=== PATIENT | female | born 1995 | race Caucasian/White ===

== ENCOUNTER 2017-09-23 10:05 | Emergency (ER) | payer OTHER ==
[~2017-09-23] VITALS: Ht 167.6 cm; Wt 64.0 kg
[2017-09-23 10:06] VITALS: BP 110/60; PULSE 78; RESP 16; TEMP 98.5; O2SAT 100
[2017-09-23] MEDS ORDERED: BENZ100 PO (10:31)
[2017-09-23] MEDS ORDERED: AZIT250T3 PO (10:31)
--- NOTE | 2017-09-23 10:34 | PD ---
HPI Chief Complaint: Cold / Flu Symptoms Time Seen by Provider: 10:30 Travel History International Travel<30 days: No Contact w/Intl Traveler<30days: No Traveled to known affect area: No History of Present Illness HPI This is a 22-year-old female with no significant past medical history presents for evaluation. For 3 weeks she has had a cough with green sputum production, sore throat and congestion. Symptoms have worsened over the past few days which prompted evaluation. She denies fevers, chills, recent travel, abdominal pain, nausea or vomiting, shortness of breath. No sick contacts. No other complaints at this time. [facility] Past Medical History Medical History: Denies Significant Hx ?: Not LMP: 09/23/17 Past Surgical History Other Surgery: Yes (RHINOPLASTY) Social History Alcohol Use: No Tobacco Use: No Substance Use: No Allergies-Medications (Allergen,Severity, Reaction): Coded Allergies: pseudoephedrine (Verified Allergy, Unknown, 09/23/17) Reported Meds & Prescriptions Reported Meds & Active Scripts Active Tessalon Perles (Benzonatate) 100 Mg Cap 200 Mg PO TID PRN Azithromycin 250 Mg Tab 250 Mg PO DIRECTED Take 2 tabs (500 mg) on day 1 then 1 tab daily x 4 days. Review of Systems Except as stated in HPI: all other systems reviewed are Neg Physical Exam Narrative GENERAL: Well-developed well-nourished female in no acute distress SKIN: Warm and dry. HEAD: Atraumatic. Normocephalic. EYES: Pupils equal and round. No scleral icterus. No injection or drainage. ENT: No nasal bleeding or discharge. Mucous membranes pink and moist. No oropharyngeal erythema or exudate. NECK: Trachea midline. No JVD. No lymphadenopathy CARDIOVASCULAR: Regular rate and rhythm. No murmur appreciated. RESPIRATORY: No accessory muscle use. Clear to auscultation. Breath sounds equal bilaterally. No crackles no wheezing or rhonchi GASTROINTESTINAL: Abdomen soft, non-tender, nondistended. Hepatic and splenic margins not palpable. Data Data Last Documented VS Vital Signs Date Time Temp Pulse Resp B/P (MAP) Pulse Ox O2 Delivery O2 Flow Rate FiO2 09/23/17 10:06 98.5 78 16 110/60 (77) 100 Room Air Orders Orders Ed Discharge Order (09/23/17 10:32) MDM Medical Decision Making Medical Screen Exam Complete: Yes Emergency Medical Condition: Yes Medical Record Reviewed: Yes Differential Diagnosis Bronchitis, pneumonia, influenza, reactive airway disease Narrative Course Physical examination is reassuring. Her lungs are clear to auscultation. Her symptoms have been ongoing for 3 weeks. She will be treated with azithromycin and Tessalon. Diagnosis Primary Impression: Bronchitis Additional Instructions: Medication as prescribed. Follow-up with primary care as needed and return for any emergent medical conditions. Med/Other Pt SpecificInfo: Prescription(s) given Scripts Benzonatate (Tessalon Perles) 100 Mg Cap 200 MG PO TID Y for COUGH, #20 CAP 0 Refills Prov: Suzan Nice DO 09/23/17 Azithromycin (Azithromycin) 250 Mg Tab 250 MG PO DIRECTED for Infection, #6 TAB 0 Refills Take 2 tabs (500 mg) on day 1 then 1 tab daily x 4 days. Prov: Suzan Nice DO 09/23/17 Disposition: 01 DISCHARGE HOME Condition: Stable [employer] Sep 23, 2017 10:34
== END 2017-09-23 11:13 | disposition home or self-care (01) ==
LOC: NEPD 10:05
DX: J40 Bronchitis, not specified as acute or chronic (principal); R07.0 Pain in throat
CPT/HCPCS: 99284